=== PATIENT | male | born 1970 | race African-American/Black ===

== ENCOUNTER 2024-07-15 14:16 | Emergency (ER) | payer OTHER ==
[2024-07-15] MEDS: Lidocaine 1% 5 ML VIAL INJECT ONE (15:00)
[2024-07-15] MEDS: Diphtheria,Pertussis(Acell),Tetanus Vaccine 0.5 ML Syringe IM ONE (15:00)
[2024-07-15] MEDS: amLODIPine 5 MG Tab PO ONE (15:41)
[2024-07-15] MEDS: Lisinopril 10 MG Tab PO ONE (15:42)
[2024-07-15 16:31] VITALS: BP 170/127; PULSE 98
== END 2024-07-15 16:35 | disposition home or self-care (01) ==
LOC: MW.ED 14:16
DX: S61.012A Laceration without foreign body of left thumb without damage to nail, initial encounter (principal); I10 Essential (primary) hypertension; Z23 Encounter for immunization; W26.8XXA Contact with other sharp object(s), not elsewhere classified, initial encounter
CPT/HCPCS: 12001; 73130; 90471; 90715; 99283; A9270; J3490

== ENCOUNTER 2024-11-21 17:01 | Emergency (ER) | payer BC, OTHER ==
[2024-11-21 18:58] VITALS: PULSE 108
[2024-11-21 20:17] LABS: BASOPHILS ABSOLUTE AUTO 0.06 K/uL (0.00-0.20); BASOPHILS PERCENT AUTO 0.6 % (0.0-1.0); EOSINOPHILS ABSOLUTE AUTO 0.06 K/uL (0.00-0.45); EOSINOPHILS PERCENT AUTO 0.6 % (0.0-6.0); HEMATOCRIT 41.4 % (42.0-52.0); HEMOGLOBIN 14.5 g/dL (14.0-18.0); IMMATURE GRAN ABSOLUTE AUTO 0.03 K/uL (0.00-0.05); IMMATURE GRAN PERCENT AUTO 0.3 % (0.0-0.4); LYMPHOCYTES ABSOLUTE AUTO 3.18 K/uL (1.00-4.80); LYMPHOCYTES PERCENT AUTO 33.4 % (24.0-44.0); MEAN CORPUSCULAR HEMOGLOBIN 30.5 pg (28.0-32.0); MEAN PLATELET VOLUME 8.3 fL (9.4-12.4); MONOCYTES ABSOLUTE AUTO 0.66 K/uL (0.00-0.80); MONOCYTES PERCENT AUTO 6.9 % (0.0-8.0); NEUTROPHILS ABSOLUTE AUTO 5.53 K/uL (1.80-7.70); NEUTROPHILS PERCENT AUTO 58.2 % (41.0-71.0); PLATELET COUNT,PLT 368 K/uL (150-400); RED BLOOD CELL COUNT 4.76 M/uL (4.52-5.90); WHITE BLOOD CELL COUNT,WBC 9.52 K/uL (3.9-11.3)
[2024-11-21] MEDS ORDERED: Lisinopril/Hydrochlorothiazide 10-12.5 MG Tab PO ONE (20:32)
[2024-11-21] MEDS: Lisinopril 10 MG Tab PO ONE (20:42)
[2024-11-21] MEDS: Hydrochlorothiazide 25 MG Tab PO ONE (20:44)
[2024-11-21 20:45] LABS: A/G RATIO 1.1 (0.9-1.6); ALBUMIN 4.2 g/dL (3.4-5.0); BILIRUBIN TOTAL 0.4 mg/dL (0.2-1.0); CALCIUM 8.9 mg/dL (8.5-10.1); CARBON DIOXIDE,CO2 23.9 mmol/L (21.0-32.0); CREATININE 1.1 mg/dL (0.8-1.3); EST CRCL DRUG DOSING (CG) 83.28 mL/min; MAGNESIUM 2.2 mg/dL (1.8-2.4); PROTEIN TOTAL,TP 8.1 g/dL (6.4-8.2)
[2024-11-21 21:24] VITALS: BP 210/130
== END 2024-11-21 21:21 | disposition home or self-care (01) ==
LOC: MW.ED 17:01
DX: J06.9 Acute upper respiratory infection, unspecified (principal); B97.89 Other viral agents as the cause of diseases classified elsewhere; I10 Essential (primary) hypertension; E87.6 Hypokalemia
CPT/HCPCS: 36415; 71046; 71046-26; 80053; 83735; 83880; 85025; 87428-QW; 99283; A9270-GY